=== PATIENT | male | born 1980 | race Caucasian/White ===

== ENCOUNTER 2020-12-14 10:40 | Emergency (ER) | payer SELFPAY ==
[2020-12-14] MEDS ORDERED: Iopamidol-370 76% 500 ML 1 ML ONE (12:15)
--- NOTE | 2020-12-14 13:14 | ULT ---
EXAM: US Testicular W Doppler PROVIDED CLINICAL HISTORY: Pain COMPARISON: None FINDINGS: Right testicle measures about 5 x 2.8 x 2.7 cm and demonstrates a normal grayscale sonographic appear ance. The right epididymis appears normal. The left testicle measures about 4.4 x 2.2 x 3 cm and demonstrates a normal grayscale sonographic araseli earance. The left epididymis appears normal. Color Doppler and spectral analysis of the testicular waveforms demonstrates normal flow bilaterally. There is heterogeneous material within the left inguinal canal and cranial scrotal sac suggesting hernia. There is no evidence for significant hydrocele. IMPRESSION: 1. Flow is documented to both testicles. 2. Heterogeneous material within the left inguinal canal and left scrotum, suggesting inguinal hernia .
[2020-12-14] MEDS ORDERED: Ketorolac Tromethamine 30 MG/ML VIAL ONE (13:43)
--- NOTE | 2020-12-14 15:07 | CT ---
EXAM: CT abdomen and pelvis with IV contrast PROVIDED CLINICAL HISTORY: None COMPARISON: None FINDINGS: The visualized lung bases are free of significant opacity. The solid abdominal organs demonstrate an unremarkable CT appearance. There is no bowel dilatation, inflammatory fat stranding, free fluid or free air apparent. There is n o evidence for appendicitis. There is no evidence for left inguinal hernia. No regional lymph node enlargement apparent. The regional major vascular structures appear unremarkable. The osseous structures demonstrate no concerning lytic or blastic lesions. IMPRESSION: No evidence for left inguinal hernia. Given this information, it is possible that the abnormality of the medial left scrotal sac described on prior ultrasound reflects an enlarged and inflamed epididymis.
[2020-12-14] MEDS ORDERED: cefTRIAXone\\ROCEPHIN 250 MG VIAL ONE ×2 (15:26→15:30)
[2020-12-14] MEDS ORDERED: Lidocaine 1% PF 5 ML VIAL ONE (15:26)
[2020-12-14 16:22] LABS: Bacteria/HPF None Seen HPF (None Seen); Bilirubin Negative (Negative); Blood, Urine Negative (Negative); Clarity Clear (Clear); Glucose, Urine (Dipstick) Normal (Negative); Ketone, Urine Negative (Negative); Leukocyte Negative Leu/uL (Negative); Nitrite Negative (Negative); Protein, Urine (Dipstick) 50 mg/dL (Neg-Trace); RBC/HPF 0-3 HPF (0-3); Squamous Epithelial None Seen HPF (0-3); Urobilinogen Normal mg/dL (Less than 2); pH, Urine 6.5 (5.0-9.0)
[2020-12-14 16:28] LABS: Specific Gravity, Urine Greater than 1.060 (1.002-1.036)
== END 2020-12-14 15:38 | disposition home or self-care (01) ==
LOC: ERS 10:40
DX: N45.1 Epididymitis (principal); F17.210 Nicotine dependence, cigarettes, uncomplicated
CPT/HCPCS: 74177; 76870; 81003; 81015; 93976; 96372; 96374; J0696; J1885; Q9967

== ENCOUNTER 2021-05-26 23:43 | Emergency (ER) | payer SELFPAY | END 2021-05-27 00:10 | disposition left against medical advice (07) | LOC: ERS 23:43 | DX: Z53.21 Procedure and treatment not carried out due to patient leaving prior to being seen by health care provider (principal) ==

== ENCOUNTER 2021-06-09 13:20 | Emergency (ER) | payer SELFPAY ==
[2021-06-09] MEDS ORDERED: Ketorolac Tromethamine 30 MG/ML VIAL ONE (16:13)
== END 2021-06-09 16:30 | disposition home or self-care (01) ==
LOC: ERS 13:20
DX: G89.29 Other chronic pain (principal); M54.5 Low back pain; F17.210 Nicotine dependence, cigarettes, uncomplicated
CPT/HCPCS: 96372; 99281; J1885

== ENCOUNTER 2021-11-17 09:19 | Emergency (ER) | payer SELFPAY | END 2021-11-17 10:16 | disposition home or self-care (01) | LOC: ERS 09:19 | DX: S91.311D Laceration without foreign body, right foot, subsequent encounter (principal); F17.210 Nicotine dependence, cigarettes, uncomplicated | CPT/HCPCS: 99283 ==

== ENCOUNTER 2022-05-27 07:11 | Emergency (ER) | payer SELFPAY ==
[2022-05-27] MEDS ORDERED: Ondansetron ODT 4 MG TAB ONE (07:39)
[2022-05-27] MEDS ORDERED: Dicyclomine 20 MG/2 ML VIAL ONE (07:39)
== END 2022-05-27 08:02 | disposition home or self-care (01) ==
LOC: ERS 07:11
DX: A08.4 Viral intestinal infection, unspecified (principal); F17.210 Nicotine dependence, cigarettes, uncomplicated
CPT/HCPCS: 96372; 99283; Q0162

== ENCOUNTER 2022-06-10 15:09 | Emergency (ER) | payer SELFPAY | END 2022-06-10 17:05 | disposition home or self-care (01) | LOC: ERS 15:09 | DX: R07.81 Pleurodynia (principal); M79.10 Myalgia, unspecified site; F17.210 Nicotine dependence, cigarettes, uncomplicated ==

== ENCOUNTER 2022-11-27 09:01 | Emergency (ER) | payer SELFPAY ==
[2022-11-27 09:41] LABS: #Eosinphils 0.2 thou/uL (0.0-0.7); #Lymphocytes 1.2 thou/uL (1.20-3.40); #Monocytes 0.4 thou/uL (0.11-0.59); %Basophils 0.7 % (0.0-1.0); %Eosinophils 3.1 % (0.0-10.0); %Lymphocytes 20.5 % (21.0-51.0); %Monocytes 6.3 % (0.0-10.0); %Neutrophils 69.4 % (42.0-75.0); Hemoglobin 14.3 g/dL (14.0-18.0); Mean Corpuscular HGB CONC 32.3 g/dL (32.0-36.0); Mean Corpuscular Hemoglobin 32.3 pg (27.0-31.0); Mean Corpuscular Volume 99.9 fl (78.0-98.0); Mean Platelet Volume 5.9 fL (7.4-10.4); Platelet Count 370 10x3/uL (130-400); Red Blood Cell (RBC) Count 4.41 mill/uL (4.70-6.10); White Blood Cell (WBC) Count 5.8 10x3/uL (4.8-10.8)
[2022-11-27 10:02] LABS: ALT (SGPT) 24 U/L (8-55); AST (SGOT) 24 U/L (5-34); Albumin 4.2 g/dL (3.5-5.0); Alkaline Phosphatase 67 U/L (40-110); Anion Gap 9 mmol/L (10-20); BUN (Urea Nitrogen) 11 mg/dL (8.9-20.6); Bilirubin, Total 0.4 mg/dL (0.2-1.2); Calc. Creatinine Clearance 0 mL/min (70-130); Carbon Dioxide 24 mmol/L (22-29); Chloride 103 mmol/L (98-107); Estimated GFR 112; Globulin 2.7 g/dL (2.4-3.5); Glucose 120 mg/dL (70-105); Lipase 36 U/L (8-78); Potassium 4.1 mmol/L (3.5-5.1); Protein, Total 6.9 g/dL (6.0-8.3); Sodium 132 mmol/L (136-145)
== END 2022-11-27 11:12 | disposition home or self-care (01) ==
LOC: ERS 09:01
DX: M79.89 Other specified soft tissue disorders (principal); F17.210 Nicotine dependence, cigarettes, uncomplicated
CPT/HCPCS: 36415; 80053; 83690; 84484; 85025; 85379

== ENCOUNTER 2023-05-16 08:54 | Emergency (ER) | payer SELFPAY ==
[2023-05-16] MEDS ORDERED: Ketorolac Tromethamine 30 MG/ML VIAL ONE (09:25)
== END 2023-05-16 09:55 | disposition home or self-care (01) ==
LOC: ERS 08:54
DX: S33.5XXA Sprain of ligaments of lumbar spine, initial encounter (principal); M62.838 Other muscle spasm; F17.210 Nicotine dependence, cigarettes, uncomplicated
CPT/HCPCS: 96372; 99283; J1885

== ENCOUNTER 2023-08-30 05:25 | Emergency (ER) | payer SELFPAY ==
[2023-08-30] MEDS ORDERED: Ketorolac Tromethamine 30 MG/ML VIAL ONE (05:57)
[2023-08-30] MEDS ORDERED: Dexamethasone 10 MG/ML VIAL ONE (05:57)
== END 2023-08-30 06:20 | disposition home or self-care (01) ==
LOC: ERS 05:25
DX: M54.31 Sciatica, right side (principal); F17.210 Nicotine dependence, cigarettes, uncomplicated
CPT/HCPCS: 96372; 99283; J1100; J1885

== ENCOUNTER 2023-09-04 04:18 | Emergency (ER) | payer SELFPAY ==
[2023-09-04] MEDS ORDERED: Ketorolac Tromethamine 30 MG/ML VIAL ONE ×2 (04:41→04:43)
[2023-09-04] MEDS ORDERED: Dexamethasone 4 mg/ml Vial ONE (04:41)
== END 2023-09-04 05:17 | disposition home or self-care (01) ==
LOC: ERS 04:18
DX: M54.31 Sciatica, right side (principal); F17.210 Nicotine dependence, cigarettes, uncomplicated
CPT/HCPCS: 96372; 99283; J1100; J1885